=== PATIENT | female | born 1955 | race Caucasian/White ===

== ENCOUNTER 2019-04-14 12:42 | Outpatient (CLI) | payer MEDICARE, MEDICAID, SELFPAY ==
--- NOTE | 2019-04-14 12:49 | XR_ITS ---
WS: [id number] LATERAL CERVICAL SPINE: 3 view. Lateral radiographs are performed in upright neutral, flexion and extension to the patient's toleranc e. HISTORY: CERVICALGIA COMPARISON: 04/15/2015 Prior anterior cervical fusion with interbody spacers extends from C4 through C7. Incomplete fusion a cross the C4-5 and C5-6 disc spaces. C3 retrolisthesis by 1.4 mm. During extension 2 mm retrolisthesis of C3 and normal alignment during f lexion. XR/XR cervical spine fl/ex [id number] IMPRESSION: 1. Slight retrolisthesis of C3. Significant instability in this is not documen jimmy. 2. Prior anterior cervical fusion with interbody spacers from C4 to C7.
== END 2019-04-14 12:43 | disposition home or self-care (01) ==
PROVIDERS: Family Provider Family Medicine; Visit Provider Nurse Practitioner
DX: M54.2 Cervicalgia (principal); Z98.1 Arthrodesis status
CPT/HCPCS: 72040

== ENCOUNTER → 2019-04-22 13:09 | Outpatient (BNVA) | payer MEDICARE, MEDICAID, SELFPAY | PROVIDERS: Family Provider Family Medicine; Referring Provider Licensed Practical Nurse; Visit Provider Psychiatry & Neurology Neurology | DX: G56.22 Lesion of ulnar nerve, left upper limb (principal) | CPT/HCPCS: 95869 ==

== ENCOUNTER 2019-04-25 07:46 | Emergency (ER) | payer MEDICARE, MEDICAID, SELFPAY ==
[2019-04-25 07:48] VITALS: BP 161/66; PULSE 92; RESP 22; TEMP 36.8; O2SAT 97; BMI 41.1
[2019-04-25 08:04] VITALS: O2SAT 94
--- NOTE | 2019-04-25 08:06 | XRR_ITS ---
PROCEDURE INFORMATION: Exam: XR Chest, 1 View Exam date and time: 04/25/2019 8:19 AM Age: 63 years old Clinical indication: Shortness of breath; Additional info: Shortness of breath, chest tightness TECHNIQUE: Imaging protocol: XR of the chest Views: 1 view. COMPARISON: CR Chest 2 views* [id number] 06/18/2017 9:53 AM FINDINGS: Lungs: Hyperinflation and interstitial prominence. Pleural space: No significant pleural effusion. Heart/Mediastinum: Epicardial fat, without cardiomegaly. Bones/joints: Osteopenia. Cervical spine fusion. Degenerative change. When correlating with the previous study, no significant interval changes are present. XR/XR chest 1V portable [id number] IMPRESSION: Stable appearance of the chest, not significantly changed from 06/18/2017.
--- NOTE | 2019-04-25 08:09 | W.ED.SOB ---
HPI - SOB/Dyspnea General: Chief Complaint: Shortness of Breath/Dyspnea Stated Complaint: shortness of breath Time Seen by Provider: 04/25/19 08:06 Source: patient Mode of arrival: ambulatory Limitations: no limitations History of Present Illness: HPI Narrative: Patient comes in with 2 to 3-day history of shortness of breath with tightness around her chest. Patient also reports difficulty laying down and sleeping at night due to increased shortness of breath due to laying back. Patient reports symptoms got worse over the last 2 days. But has had some problems for the last 2 weeks. Patient denies any fever or chills. Patient looks chronically ill. Patient has short sentences without difficulty. Patient appears in no pain. Associated symptoms: Reports chest pain (tightness); Deny fever(s) Review of Systems General: Reports: 10 or more systems reviewed and unremarkable except in HPI and below Const: Denies: fever Card: Reports: chest pain (tightness) Resp: Reports: shortness of breath PFSH ED PFSH: Statuses (acute, chronic, etc) shown below reflect problem list status as previously entered and may not be historically accurate Social History Smoking and tobacco status: current every day smoker Physical Exam Const: COMMON NORMALS: no apparent distress and oriented x3 GENERAL APPEARANCE: cooperative HENMT: COMMON NORMALS: normocephalic, external ears normal, EAC's normal, TM's normal bilaterally and external nose normal HEAD & SCALP: normal to inspection and normocephalic FACE & SINUS: normal facial exam NOSE: external nose normal GENERAL EAR: hearing not grossly impaired EXTERNAL EAR: Yes external ears normal EXTERNAL AUDITORY CANAL: EAC's normal TYMPANIC MEMBRANE: TM's normal bilaterally MOUTH: oral and palatal mucosa normal THROAT: posterior oropharynx normal Eye: COMMON NORMALS: PERRL and EOMs intact bilaterally PUPIL: Yes PERRL Neck/C-Spine: COMMON NORMALS: full ROM and no lymphadenopathy Lymph: LYMPHATIC: no lymphedema noted Chest: COMMONS NORMALS: inspection of chest normal and palpation of chest normal Resp: COMMON NORMALS: normal respiratory effort AUSCULTATION: wheezes (mild) and diminished lung sounds Cardio: COMMON NORMALS: regular rate and regular rhythm RATE: regular rate RHYTHM: regular rhythm GI: COMMON NORMALS: normal to inspection, nondistended, normoactive bowel sounds and non-tender : COMMON NORMALS: Yes no CVA tenderness BLADDER/KIDNEY EXAM: Yes no CVA tenderness Back/Pelvis: COMMON NORMALS: no CVA tenderness and thoracic and lumbar spine normal to inspection Extremity: COMMON NORMALS: normal to inspection GENERAL: Yes edema (mild) OTHER: AKA left lower leg Neuro: COMMON NORMALS: oriented x3, moves all extremities and no focal motor deficits Psych: COMMON NORMALS: mental status grossly normal and cooperative Skin: COMMON NORMALS: no rashes or lesions noted GENERAL SKIN EXAM: no rashes or lesions noted Course ED course: 834, patient continues to have chest pressure, and mild shortness of breath since nebulizer treatment, wheezing improved in lung donato. wjw 0857, HEART Score for Major Cardiac Events from [place] on 04/25/2019 All calculations should be rechecked by clinician prior to use RESULT SUMMARY: 5 points Moderate Score (4-6 points) Risk of MACE of 12-16.6%. INPUTS: History ?> 1 = Moderately suspicious EKG ?> 1 = Non-specific repolarization disturbance Age ?> 1 = 45-64 Risk factors ?> 2 = ?3 risk factors or history of atherosclerotic disease Initial troponin ?> 0 = ?normal limit entered per wjw. REviewed with Dr. Mar. wjw 0943, no change in chest pressure with use of nitro paste, patient believes it is do to anxeity, reviewed labs and recommended admission for monitoring, patient refused. She will follow-up with her lead printer for further cardiac evaluation patient has nitro at home, takes a baby aspirin. Offered buspirone for patient to try for anxiety agreed to prescription. Vital Signs: Vital signs: Vital Signs Temperature 98.2 F 04/25/19 07:48 Pulse Rate 94 04/25/19 09:11 Respiratory Rate 22 H 04/25/19 08:25 Blood Pressure 131/65 04/25/19 09:11 Pulse Oximetry 95 04/25/19 09:11 MDM - SOB/Dyspnea MDM Narrative: Medical decision making narrative: Patient comes in today with complaints of some orthopnea and chest pressure. Patient states that she has been having increased difficulty over the last 2 weeks. On exam patient had some wheezing in the lung donato but with air movement throughout. Vital signs were stable with good oxygen saturation. Skin was warm and dry and patient appeared in no pain and appeared well. Differential diagnosis includes CHF, exacerbation of COPD, ACS, stable angina, anxiety. Laboratory values initially were unremarkable. No change was noted in the troponin over 2 hours. Review of EKG did note some changes from 2017. Chest x-ray was without any change. Patient was given a nebulizer treatment which cleared up her lung donato but did not change any of her discomfort. Patient was given a nitro to the chest wall which also did not change her discomfort. Patient felt that her pressure was due to anxiety and after further discussion patient agreed to trial of buspirone to see if it would help with her discomfort. Offered patient admission to the hospital but she refused. Discussed follow-up with lead printer and to set up for stress test patient wanted to talk to her own lead printer at [place], will put in a case management referral for assistance. Reviewed case with Dr. Gaitan who agreed to the plan and recommendations. Patient does understand to return to the ER for worsening signs and symptoms. Lab Data: Labs: Lab Results 04/25/19 04/25/19 04/25/19 Range/Units 06:30 06:30 06:30 WBC 10.3 H (4.0-10.0) 10^3/ uL RBC 4.95 (4.1-5.3) 10^6/u L Hgb 15.1 (11.5-15.3) g/dL Hct 46.1 (37.0-47.0) % MCV 93.1 (81-99) fL MCH 30.5 (28.0-34.0) pg MCHC 32.8 (30.0-36.0) g/dL RDW 13.3 (12.1-15.1) % Plt Count 210 (130-400) 10^3/c mm MPV 9.6 (7.4-10.4) fL Neut % (Auto) 58.7 % Lymph % (Auto) 30.8 % [place] % (Auto) 8.0 % Eos % (Auto) 1.5 % Baso % (Auto) 0.6 % Neut # (Auto) 6.0 (1.8-7.7) 10^3/u L Lymph # (Auto) 3.2 (0.8-4.8) 10^3/u L [place] # (Auto) 0.8 (0.2-0.9) 10^3/u L Eos # (Auto) 0.2 (0.0-0.8) 10^3/u L Baso # (Auto) 0.1 (0.0-0.1) 10^3/u L Nucleated RBC % (a uto) 0 % Nucleated RBCs # 0.0 /100WBC PT 13.00 (10.5-13.3) SECO NDS INR 0.95 (0.8-1.2) D-Dimer 0.36 (0-0.59) ug/mIFE U Specimen Type Sample Site ABG pH (7.35-7.45) ABG pCO2 (35-45) mmHg ABG pO2 (80.0-100.0) mmH g ABG HCO3 (22-26) mmol/L ABG Base Excess (-2.0-2.0) mmol/ L Gary Test Hematocrit (37-47) % Hgb O2 Saturation (95-100) % Carboxyhemoglobin (0.4-20.1) %THgb Methemoglobin (0.4-1.5) % Total Hemoglobin (12-16) g/dL O2 Delivery Device Material Handler ID Sodium 138 (136-145) mmol/L Potassium 4.3 (3.5-5.1) mmol/L Chloride 98 (98-107) mmol/L Carbon Dioxide 23 (22-29) mmol/L Anion Gap 21.3 H (5-19) BUN 15 (8-23) mg/dL Creatinine 0.6 (0.5-0.9) mg/dL GFR Calculation 101.3 (90-130) mL/min Glucose 135 H (74-106) mg/dL Lactic Acid (0.5-2.2) mmol/L Calcium 10.1 (8.5-10.5) mg/dL Total Bilirubin 0.3 (0.15-1.2) mg/dL AST 22 (0-32) U/L ALT 23 (0-33) U/L Alkaline Phosphata se 100 (35-105) IU/L Troponin T Baselin e (0-10) ng/mL Troponin T 120 Min [place] (0-10) ng/mL Delta Troponin T (0-10) ABS# NT-Pro-B Natriuret Pep 229 H (0-125) pg/mL Total Protein 7.3 (6.6-8.7) g/dL Albumin 4.9 (3.5-5.2) g/dL Globulin 2.4 (1.3-4.6) g/dL Lipase 29 (13-60) U/L 04/25/19 04/25/19 04/25/19 Range/Units 06:30 08:20 08:20 WBC (4.0-10.0) 10^3/ uL RBC (4.1-5.3) 10^6/u L Hgb (11.5-15.3) g/dL Hct (37.0-47.0) % MCV (81-99) fL MCH (28.0-34.0) pg MCHC (30.0-36.0) g/dL RDW (12.1-15.1) % Plt Count (130-400) 10^3/c mm MPV (7.4-10.4) fL Neut % (Auto) % Lymph % (Auto) % [place] % (Auto) % Eos % (Auto) % Baso % (Auto) % Neut # (Auto) (1.8-7.7) 10^3/u L Lymph # (Auto) (0.8-4.8) 10^3/u L [place] # (Auto) (0.2-0.9) 10^3/u L Eos # (Auto) (0.0-0.8) 10^3/u L Baso # (Auto) (0.0-0.1) 10^3/u L Nucleated RBC % (a uto) % Nucleated RBCs # /100WBC PT (10.5-13.3) SECO NDS INR (0.8-1.2) D-Dimer (0-0.59) ug/mIFE U Specimen Type Arterial Sample Site Radial, right ABG pH 7.42 (7.35-7.45) ABG pCO2 37.1 (35-45) mmHg ABG pO2 64.4 L (80.0-100.0) mmH g ABG HCO3 23.9 (22-26) mmol/L ABG Base Excess -0.3 (-2.0-2.0) mmol/ L Gary Test Pos Hematocrit 44.4 (37-47) % Hgb O2 Saturation 90.7 L (95-100) % Carboxyhemoglobin 3.8 (0.4-20.1) %THgb Methemoglobin 0.2 L (0.4-1.5) % Total Hemoglobin 14.5 (12-16) g/dL O2 Delivery Device Room air Material Handler ID monro Sodium (136-145) mmol/L Potassium (3.5-5.1) mmol/L Chloride (98-107) mmol/L Carbon Dioxide (22-29) mmol/L Anion Gap (5-19) BUN (8-23) mg/dL Creatinine (0.5-0.9) mg/dL GFR Calculation (90-130) mL/min Glucose (74-106) mg/dL Lactic Acid (0.5-2.2) mmol/L Calcium (8.5-10.5) mg/dL Total Bilirubin (0.15-1.2) mg/dL AST (0-32) U/L ALT (0-33) U/L Alkaline Phosphata se (35-105) IU/L Troponin T Baselin e 15 H (0-10) ng/mL Troponin T 120 Min [place] 13.68 H (0-10) ng/mL Delta Troponin T -1.32 L (0-10) ABS# NT-Pro-B Natriuret Pep (0-125) pg/mL Total Protein (6.6-8.7) g/dL Albumin (3.5-5.2) g/dL Globulin (1.3-4.6) g/dL Lipase (13-60) U/L 04/25/19 Range/Units 08:20 WBC (4.0-10.0) 10^3/ uL RBC (4.1-5.3) 10^6/u L Hgb (11.5-15.3) g/dL Hct (37.0-47.0) % MCV (81-99) fL MCH (28.0-34.0) pg MCHC (30.0-36.0) g/dL RDW (12.1-15.1) % Plt Count (130-400) 10^3/c mm MPV (7.4-10.4) fL Neut % (Auto) % Lymph % (Auto) % [place] % (Auto) % Eos % (Auto) % Baso % (Auto) % Neut # (Auto) (1.8-7.7) 10^3/u L Lymph # (Auto) (0.8-4.8) 10^3/u L [place] # (Auto) (0.2-0.9) 10^3/u L Eos # (Auto) (0.0-0.8) 10^3/u L Baso # (Auto) (0.0-0.1) 10^3/u L Nucleated RBC % (a uto) % Nucleated RBCs # /100WBC PT (10.5-13.3) SECO NDS INR (0.8-1.2) D-Dimer (0-0.59) ug/mIFE U Specimen Type Sample Site ABG pH (7.35-7.45) ABG pCO2 (35-45) mmHg ABG pO2 (80.0-100.0) mmH g ABG HCO3 (22-26) mmol/L ABG Base Excess (-2.0-2.0) mmol/ L Gary Test Hematocrit (37-47) % Hgb O2 Saturation (95-100) % Carboxyhemoglobin (0.4-20.1) %THgb Methemoglobin (0.4-1.5) % Total Hemoglobin (12-16) g/dL O2 Delivery Device Material Handler ID Sodium (136-145) mmol/L Potassium (3.5-5.1) mmol/L Chloride (98-107) mmol/L Carbon Dioxide (22-29) mmol/L Anion Gap (5-19) BUN (8-23) mg/dL Creatinine (0.5-0.9) mg/dL GFR Calculation (90-130) mL/min Glucose (74-106) mg/dL Lactic Acid 2.1 (0.5-2.2) mmol/L Calcium (8.5-10.5) mg/dL Total Bilirubin (0.15-1.2) mg/dL AST (0-32) U/L ALT (0-33) U/L Alkaline Phosphata se (35-105) IU/L Troponin T Baselin e (0-10) ng/mL Troponin T 120 Min [place] (0-10) ng/mL Delta Troponin T (0-10) ABS# NT-Pro-B Natriuret Pep (0-125) pg/mL Total Protein (6.6-8.7) g/dL Albumin (3.5-5.2) g/dL Globulin (1.3-4.6) g/dL Lipase (13-60) U/L EKG Data^: EKG 1: Attestation: I personally reviewed and interpreted this EKG as follows: (0836, SR, rate 86 bpm regular, no ectopy, non-specific t-wave abnormality, changes since 09/20/16, wjw) Discharge Plan Discharge Patient Disposition: Home, Self-Care Clinical Impression: Atypical chest pain, Anxiety Condition: Stable Prescriptions: New buspirone 5 mg tablet 5 mg PO BID Qty: 30 RF: 0 Discharge Orders: Discharge Order (Routine); Ordered 04/25/19 Ordered By: Ramiro Glover Referrals: NOT ON FILE,DOCTOR [Primary Care Provider] - Jacquelyn Null DO [Family Provider] - Discharge Diet: Usual diet Discharge Activity: Resume usual activity Patient Instructions: Chest Pain (ED) Activity Restrictions/Additional Instructions: Home and rest Buspirone works best for anxiety if taken all the time, but may be use for as needed Follow-up with primary care for refills on medication Continue routine medications as directed Follow-up with lead printer office for re-evaluation and further testing with stress test. Coding Level of Care Code ED Staking Press Operator for Deo Viveros Exam Problem Focused
[2019-04-25 08:15] LABS: Basophils # 0.1 10^3/uL (0.0-0.1); Basophils % 0.6 %; Eosinophils # 0.2 10^3/uL (0.0-0.8); Eosinophils % 1.5 %; Hematocrit 46.1 % (37.0-47.0); Hemoglobin 15.1 g/dL (11.5-15.3); Lymphocytes # 3.2 10^3/uL (0.8-4.8); Lymphocytes % 30.8 %; Mean Corpuscular HGB Conc 32.8 g/dL (30.0-36.0); Mean Corpuscular Hemoglobin 30.5 pg (28.0-34.0); Mean Corpuscular Volume 93.1 fL (81-99); Mean Platelet Volume 9.6 fL (7.4-10.4); Monocytes # 0.8 10^3/uL (0.2-0.9); Neutrophils % 58.7 %; Nucleated Red Blood Cells % 0 %; Platelet Count 210 10^3/cmm (130-400); Red Blood Count 4.95 10^6/uL (4.1-5.3); Red Cell Distribution Width 13.3 % (12.1-15.1); White Blood Count 10.3 10^3/uL (4.0-10.0)
[2019-04-25] MEDS: ipratropium-albuterol 3 mL Neb INHALATION (08:19)
[2019-04-25 08:25] VITALS: PULSE 87; RESP 22; O2SAT 95
[2019-04-25 08:27] VITALS: PULSE 92
[2019-04-25 08:27] LABS: INR 0.95 (0.8-1.2)
[2019-04-25 08:30] LABS: D Dimer 0.36 ug/mIFEU (0-0.59)
[2019-04-25 08:31] LABS: ABG PCO2 37.1 mmHg (35-45); ABG PH Result 7.42 (7.35-7.45); Arterial Blood Gas Hematocrit 44.4 % (37-47); Base Excess ABG -0.3 mmol/L (-2.0-2.0); Blood Gas Allen Test Pos; Blood Gas Sample Site Radial, right; Blood Gas Sample Type Arterial; Carboxyhemoglobin 3.8 %THgb (0.4-20.1); HCO3 ABG 23.9 mmol/L (22-26); HGB O2 Sat 90.7 % (95-100); Methemoglobin 0.2 % (0.4-1.5); Oxygen Device ROOM AIR; PO2 ABG 64.4 mmHg (80.0-100.0); Total Hemoglobin 14.5 g/dL (12-16)
[2019-04-25 08:37] LABS: Troponin(5th) Baseline 15 ng/mL (0-10)
[2019-04-25 08:41] LABS: Lactic Sepsis W/Reflex 2.1 mmol/L (0.5-2.2)
[2019-04-25 08:42] LABS: Troponin 5 2HR 13.68 ng/mL (0-10)
[2019-04-25 08:45] LABS: Alanine Aminotransferase 23 U/L (0-33); Albumin Level 4.9 g/dL (3.5-5.2); Alkaline Phosphatase 100 IU/L (35-105); Anion Gap 21.3 (5-19); Aspartate Amino Transferase 22 U/L (0-32); Blood Urea Nitrogen 15 mg/dL (8-23); Calcium 10.1 mg/dL (8.5-10.5); Carbon Dioxide 23 mmol/L (22-29); Chloride 98 mmol/L (98-107); Globulin 2.4 g/dL (1.3-4.6); Glomerular Filtration Rate 101.3 mL/min (90-130); Glucose 135 mg/dL (74-106); Lipase 29 U/L (13-60); NT Pro B Type Natriuretic Pept 229 pg/mL (0-125); Potassium 4.3 mmol/L (3.5-5.1); Sodium 138 mmol/L (136-145); Total Bilirubin 0.3 mg/dL (0.15-1.2); Total Protein 7.3 g/dL (6.6-8.7)
[2019-04-25 08:55] LABS: Troponin 5 2HR Delta -1.32 ABS# (0-10)
[2019-04-25] MEDS: nitroglycerin 1 gm/inch oint Pkt 1 INCH TOPICAL (09:08)
[2019-04-25 09:11] VITALS: BP 131/65; PULSE 94; O2SAT 95
--- NOTE | 2019-04-25 10:08 | ECG_ITS ---
Measurements Intervals Eva Rate: 91 P: 61 MT: 171 QRS: -10 QRSD: 87 T: 74 QT: 367 QTc: 453 SINUS RHYTHM NONSPECIFIC T-WAVE ABNORMALITY Compared to ECG 09/20/2016 05:53:53 T-wave abnormality now present Sinus tachycardia no longer present Myocardial infarct finding no longer present Electronically Signed On 04-25-2019 15:37:24 FIELD AGRONOMIST by Murtaza Matthews M.D. [email or web address]
[2019-04-25 10:11] LABS: Reflex Lactate Order REFLEX LACTIC ORDERD
--- NOTE | 2019-04-25 10:23 | PC.PHAR ---
pt discharged before i could verify meds but this is what has been filled at the pharmacy recently
[2019-04-25 10:28] VITALS: BP 140/78; PULSE 95; O2SAT 96
--- NOTE | 2019-04-25 11:31 | DCPLANNER ---
design manager was asked to call for transportation for patient. design manager called medicaid transportation and arranged for transportation. Trip number is [phone]. design manager was also asked about scheduling an out patient stress test for patient. design manager spoke with patient, she stated that she has spoken with her primary care, that she will see next week. Patient stated that her primary care will arrange for the stress test and any other testing that patient may need. No case management services are needed at this time.
--- NOTE | 2019-04-25 14:08 | ECG_ITS ---
Measurements Intervals [place] Rate: 86 P: 64 TX: 180 QRS: -10 QRSD: 91 T: 66 QT: 368 QTc: 442 SINUS RHYTHM LOW QRS VOLTAGE IN PRECORDIAL LEADS [QRS DEFLECTION < 1.0 mV IN CHEST LEADS] NONSPECIFIC T-WAVE ABNORMALITY Compared to ECG 09/20/2016 05:53:53 Low QRS voltage now present T-wave abnormality now present Sinus tachycardia no longer present Myocardial infarct finding no longer present Electronically Signed On 04-25-2019 15:37:20 REGULATORY LAW SPECIALIST by Murtaza Matthews M.D. [email or web address]
== END 2019-04-25 10:42 | disposition home or self-care (01) ==
PROVIDERS: Emergency Provider Nurse Practitioner Family; Family Provider Family Medicine
DX: R07.89 Other chest pain (principal); F41.9 Anxiety disorder, unspecified; F17.210 Nicotine dependence, cigarettes, uncomplicated
CPT/HCPCS: 36415; 36600; 71045; 80053; 82805; 83605; 83690; 83880; 84484; 85025; 85378; 85610; 87040; 87077; 87184; 87205; 93005; 94640; 99282

== ENCOUNTER 2019-05-14 09:37 | Outpatient (CLI) | payer MEDICARE, MEDICAID, SELFPAY ==
--- NOTE | 2019-05-14 09:48 | USCV_ITS ---
Nabila Maier Age: 63 Gender: F : 1955 Exam Date: 05/14/2019 09:45 Ordering Phys: Luis Ayala Technologist: Axel Gunn Exam Location: [facility] – [place] Indication: ARTERIAL INSUFFICIENCY RIGHT LEFT Brachial 142.00 mmHg Brachial 141.00 mmHg Pressure (mmHg) Waveform Pressure (mmHg) Waveform 96.00 Above Knee 84.00 Below Knee 99.00 SENIOR LOAN OFFICER 89.00 DPA 0.70 Ankle/Brachial Index FINDINGS unable to detect pulse in right first digit Diminished resting JUAN of 0.7 on the right side Diminished segmental pressures CONCLUSIONS Abnormal resting JUAN of the right side, suggestive of hemodynamically significant iliofemoral disease Features of possible occlusion of the first digital artery on the right side Dr Murtaza Matthews MD FAC (Electronically Signed) Final Date: 15 May 2019 19:44 S
--- NOTE | 2019-05-14 10:29 | USCV_ITS ---
Nabila Maier Age: 63 Gender: F : 1955 Exam Date: 05/14/2019 10:38 Ordering Phys: Luis Ayala Technologist: Osiris Arevalo Exam Location: [facility] [place] Indication: STENOSIS Risk Factors: Previous Vascular Surgery: Right Brachial BP: / Left Brachial BP: / Right Left Velocity (cm/s) Spectral Plaque Velocity (cm/s) Spectral Plaque Syst/Diast Broadening Syst/Diast Broadening 86.00/ 24.30 Prox CCA 68.20 / 16.80 89.30/ 25.40 Mid CCA 67.10 / 22.40 87.10/ 27.60 Distal CCA 36.50 / 13.50 91.70/ 24.90 Prox ICA 50.00 / 16.70 54.20/ 13.80 Mid ICA 61.10 / 22.20 68.00/ 24.60 Distal ICA 64.30 / 21.40 156.90 ECA 77.00 1.03 ICA/CCA 0.96 Antegrade Vertebral Antegrade 24.50/ 6.30 cm/s 34.10/ 12.70 cm/s Tri Subclavian Tri 112.4 178.0 0 0 FINDINGS Comparison:. 08/17/16 No significant elevation of systolic or diastolic velocities. Diffuse bilateral scattered calcified plaque and intimal thickening throughout the common carotid arteries and extending through the bifurcation. Greatese plaque at the bifurcations. Antegrade vertbral arteries. CONCLUSIONS No interval change in stenosis since prior exam. Bilateral ICA stenosis less than 50%. Dr. Mya May DO (Electronically Signed) Final Date: 14 May 2019 11:25 S
== END 2019-05-14 09:38 | disposition home or self-care (01) ==
LOC: US 09:43
DX: I77.1 Stricture of artery (principal); I65.23 Occlusion and stenosis of bilateral carotid arteries
CPT/HCPCS: 93880; 93922

== ENCOUNTER 2019-06-11 11:43 | Outpatient (CLI) | payer MEDICARE, MEDICAID, SELFPAY ==
--- NOTE | 2019-06-11 12:04 | USCV_ITS ---
Darrion Nabila Age: 63 Gender: F : 1955 Exam Date: 06/11/2019 12:34 Ordering Phys: Ramiro Lundberg MD (Andy) ([email or web address]) Technologist: Cruz Horan Exam Location: [facility] – [place] Indication: RT LEG PAIN PAD Risk Factors: Previous Vascular Surgery: RIGHT LEFT BP: 119.0 / 66.00 BP: 132.0/ 76.00 0 0 Waveform Velocity (cm/s) Velocity (cm/s) Waveform Triphasic 88.7 Iliac Prox Triphasic 51.1 Iliac Mid Triphasic 94.5 Iliac Distal Triphasic 82.4 GLAZE SUPERVISOR Biphasic 112.8 SFA Prox Biphasic 51.1 SFA Mid Biphasic 71.3 SFA Dist Biphasic 45.3 POP Biphasic 61.7 ELEVATOR CONDUCTOR Biphasic 43.0 DPA 0.7 JUAN FINDINGS Resting JUAN of 0.7 on the right side. Moderate diffuse plaques in the iliac and femoral artery CONCLUSIONS Abnormal resting JUAN on the right side, suggestive of moderate peripheral artery disease. Moderate diffuse plaques in the iliac and femoral arteries. Dr Murtaza Matthews MD FAC (Electronically Signed) Final Date: 12 June 2019 06:34 S
== END 2019-06-11 11:44 | disposition home or self-care (01) ==
LOC: US 11:45
PROVIDERS: Visit Provider Thoracic Surgery (Cardiothoracic Vascular Surgery)
DX: I70.291 Other atherosclerosis of native arteries of extremities, right leg (principal); M79.604 Pain in right leg
CPT/HCPCS: 93926

== ENCOUNTER 2019-06-19 13:34 | Outpatient (CLI) | payer MEDICARE, MEDICAID, SELFPAY ==
--- NOTE | 2019-06-19 14:30 | CT_ITS ---
WS: [id number] CT CHEST TECHNIQUE: Noncontrast CT of the chest with coronal and sagittal reformatted images. CLINICAL INFORMATION: hemoptysis COMPARISON: 2018 DLP: 949.[address] scans at [facility] use at least one of these dose optimization techniques: automat ed exposure control; mA and/or kV adjustment per patient size (includes targeted exams where dose is matched to clinical indication); or iterative reconstruction. FINDINGS: Moderate chronic emphysematous changes. No acute pulmonary infiltrates. No focal pneumonia. No consol idation or pleural fluid. Again seen are right upper lobe tree-in-bud infiltrates which can be seen w ith infectious or inflammatory bronchiolitis. This is unchanged from previous. 5 mm hazy ground glass noncalcified pulmonary nodule in the super segment right lower lobe is unchanged. A few hazy groundg lass nodules in the right upper lobe laterally difficult to visualize but appear unchanged. Stable pleural plaques left lower lobe with adjacent fibrosis. Aortic calcification. Coronary calcification. No mediastinal or hilar lymphadenopathy. Adrenal glands are normal. CT/CT chest wo con [id number] IMPRESSION: 1. A few hazy groundglass nodules in the super segment right lower lobe and ri ght upper lobe laterally measuring 4 to 5 mm are unchanged. Recommend 12 month follow-up. 2. No new pulmonary nodules. 3. No mediastinal or hilar lymphadenopathy. 4. Small esophageal hiatal hernia. 5. Stable tree-in-bud opacities in the right upper lobe. 6. Stable pleural plaques in the left lower lobe.
--- NOTE | 2019-06-19 15:00 | USCV_ITS ---
Darrion Nabila Age: 63 Gender: F : 1955 Exam Date: 06/19/2019 13:49 Ordering Phys: Eveline Olivo MD Technologist: Gregoria Armenta Exam Location: [facility] – [place] Indication: SOB BP: 106 / 63 HR: 86 Rhythm: Sinus Technical Quality: Technically difficult study MEASUREMENTS (Male / Female) Normal Values 2D ECHO LV Diastolic Diameter PLAX 4.1 cm 4.2 - 5.9 / 3.9 - 5.3 cm LV Systolic Diameter PLAX 3.0 cm LV Chamber Size 4.1 cm IVS Diastolic Thickness 1.4 cm 0.6 - 1.0 / 0.6 - 0.9 cm IVS Systolic Thickness 1.9 cm LVPW Diastolic Thickness 1.4 cm 0.6 - 1.0 / 0.6 - 0.9 cm LVPW Systolic Thickness 1.4 cm RV Chamber Size 2.2 cm LVOT Diameter 2.1 cm LV Ejection Fraction 2D Teich 51.1 % LV Ejection Fraction MOD 2C 63.3 % LV Ejection Fraction 2C AL 64.6 % LA Diameter 5.1 cm LA Width 3.1 cm LA Height 5.2 cm RA Width 3.9 cm RA Height 4.3 cm Aorta at Sinotubular Diameter 2.6 cm M-MODE LV Diastolic Diameter MM 3.7 cm 4.2 - 5.9 / 3.9 - 5.3 cm LV Systolic Diameter MM 2.7 cm LV Ejection Fraction MM Teich 53.9 % IVS Diastolic Thickness MM 1.4 cm 0.6 - 1.0 / 0.6 - 0.9 cm IVS Systolic Thickness MM 1.6 cm LVPW Diastolic Thickness MM 1.6 cm 0.6 - 1.0 / 0.6 - 0.9 cm LVPW Systolic Thickness MM 1.9 cm RV Diastolic Diameter MM 1.2 cm Aortic Annulus Diameter 2.8 cm LA Ao Ratio MM 1.8 MV E Point Septal Separation 1.0 cm DOPPLER AV Peak Velocity 151.0 cm/s LVOT Peak Velocity 89.0 cm/s AV Area Cont Eq vti 2.4 cm squared AV Area Cont Eq pk 2.0 cm squared MV Area PHT 5.0 cm squared Mitral E to A Ratio 0.8 MV E' Velocity 8.0 cm/s Mitral E to MV E' Ratio 16.3 Mitral E to LV E' Lateral Ratio 16.3 Mitral E to LV E' Septal Ratio 16.5 TR Peak Velocity 222.8 cm/s TR Peak Gradient 19.9 mmHg TR Mean Velocity 143.0 cm/s TR Mean Gradient 10.2 mmHg TR Velocity Time Integral 59.6 cm TV Peak E Velocity 36.0 cm/s PV Peak Velocity 68.0 cm/s RV Acceleration Time 0.1 s RV Ejection Time 0.4 s RV AcT/ET 0.4 FINDINGS Left Ventricle Left ventricular ejection fraction is estimated at 50-55 %. normal left ventricular cavity size. Left ventricular cavity not well visualized. Endocardium is poorly visualized Right Ventricle Normal right ventricular size and systolic function. Right Atrium Normal right atrial size. Left Atrium The left atrium is normal in size. Mitral Valve Structurally normal mitral valve without significant stenosis or prolapse. There is 2 + mitral regurgitation. Mitral regurgitation could be underestimated due to poor windows Aortic Valve Structurally normal aortic valve without significant sclerosis or stenosis. There is no aortic regurgitation. Tricuspid Valve Structurally normal tricuspid valve without significant stenosis or regurgitation. Pulmonary artery systolic pressure is elevated Pulmonic Valve . There is no pulmonic regurgitation. Poorly visualized Pericardium Normal pericardium without effusion. Aorta Normal ascending aorta dimension. CONCLUSIONS Normal LV function EF 50-55 % No significant valvular stenosis 2+ mitral regurgitation Normal PA pressures No pericardial effusion Smiley Li MD (Electronically Signed) Final Date: 19 June 2019 15:20 S
== END 2019-06-19 13:35 | disposition home or self-care (01) ==
LOC: CT 13:35
PROVIDERS: Visit Provider Internal Medicine Critical Care Medicine
DX: J44.9 Chronic obstructive pulmonary disease, unspecified (principal); K44.9 Diaphragmatic hernia without obstruction or gangrene; J92.9 Pleural plaque without asbestos; R04.2 Hemoptysis
CPT/HCPCS: 71250; 93306

== ENCOUNTER 2019-11-20 09:51 | Outpatient (CLI) | payer MEDICARE, MEDICAID, SELFPAY ==
--- NOTE | 2019-11-20 10:15 | USCV_ITS ---
Darrion Nabila Age: 64 Gender: F : 1955 Exam Date: 11/20/2019 10:27 Ordering Phys: Ramiro Lundberg MD (Andy) Technologist: Monique Rivera Exam Location[place] [facility] [place] Indication: PVD Risk Factors: Smoker Previous Vascular Surgery: RIGHT LEFT BP: 120.0 / 67.00 BP: 122.0/ 66.00 0 0 Waveform Velocity (cm/s) Velocity (cm/s) Waveform Monophasic 224.6 Iliac Prox Monophasic 193.8 Iliac Mid Monophasic Iliac Distal 145.7 Monophasic 106.5 INTERN Monophasic 111.7 SFA Prox Monophasic 90.4 SFA Mid Monophasic 55.2 SFA Dist Monophasic 64.5 POP Monophasic 32.6 FOIL OPERATOR Monophasic 33.4 DPA 0.3 JUAN FINDINGS Monophasic and continuous waveforms in the right dorsalis pedis artery Markedly diminished resting JUAN on the right side CONCLUSIONS 1. Abnormal resting JUAN on the right side, consistent with severe peripheral artery disease, possibly multisegmental. 2. Features of collateral filling of the dorsalis pedis artery . Dr Murtaza Matthews MD FACC (Electronically Signed) Final Date: 21 November 2019 00:28 S
--- NOTE | 2019-11-20 11:00 | USCV_ITS ---
Nabila Maier Age: 64 Gender: F : 1955 Exam Date: 11/20/2019 10:00 Ordering Phys: Ramiro Lundberg MD (Andy) Technologist: Gregoria Armenta [place] [facility] [place]ication: RECHECK CCA STENOSIS Risk Factors: Previous Vascular Surgery: Right Brachial BP: / Left Brachial BP: / Right Left Velocity (cm/s) Spectral Plaque Velocity (cm/s) Spectral Plaque Syst/Diast Broadening Syst/Diast Broadening 89.30/ 26.50 Prox CCA 79.90 / 23.40 105.80/28.70 Mid CCA 59.60 / 20.40 87.10/ 37.50 Distal CCA 75.40 / 20.40 128.00/32.70 Prox ICA 82.20 / 29.40 128.00/37.00 Mid ICA 85.70 / 20.60 55.80/ 18.60 Distal ICA 83.30 / 24.20 162.90 ECA 45.60 1.21 ICA/CCA 1.44 Vertebral 56.20/ 14.00 cm/s 39.50/ 12.80 cm/s Subclavian 67.90 234.9 0 FINDINGS Comparison:. 05/14/19 Moderate bilateral, calcified plaque with no elevation of velocity. Minimal progression since the prior study. Bilateral antegrade vertebral arteries. CONCLUSIONS Bilateral ICA stenosis less than 50%. Calcified plaque at the bifurcations with minimal progression. Dr. Mya May DO (Electronically Signed) Final Date: 21 November 2019 16:16 S
== END 2019-11-20 09:52 | disposition home or self-care (01) ==
LOC: RAD 09:55
PROVIDERS: Visit Provider Thoracic Surgery (Cardiothoracic Vascular Surgery)
DX: I65.23 Occlusion and stenosis of bilateral carotid arteries (principal); I73.9 Peripheral vascular disease, unspecified
CPT/HCPCS: 93880; 93926

== ENCOUNTER → 2019-12-17 11:55 | Outpatient (BNVA) | payer MEDICARE, MEDICAID, SELFPAY | PROVIDERS: PCP Nurse Practitioner Family; Visit Provider Internal Medicine Critical Care Medicine | DX: I34.0 Nonrheumatic mitral (valve) insufficiency (principal); G47.10 Hypersomnia, unspecified | CPT/HCPCS: 80048; 83880 ==

== ENCOUNTER 2019-12-21 10:14 | Emergency (ER) | payer MEDICARE, MEDICAID, SELFPAY ==
[2019-12-21] VITALS (16 sets, daily range): BP systolic 108–155; BP diastolic 60–87; PULSE 115–124; RESP 15–24; TEMP 37.7; O2SAT 84–100; BMI 44.8
--- NOTE | 2019-12-21 10:30 | ECG_ITS ---
[facility] Test Date: 2019-12-21 Pat Name: Nabila Maier Department: Room: Gender: Female Med Spa Manager: : 1955 Requested By: Zakiya Bob Order Number: [id number] Kaz MD: Joshua Alvarado M.D. Measurements Intervals [place] Rate: 123 P: 69 MT: 175 QRS: -29 QRSD: 109 T: 83 QT: 332 QTc: 475 Interpretive Statements SINUS TACHYCARDIA Compared to ECG 04/25/2019 10:02:29 Sinus rhythm no longer present T-wave abnormality no longer present Electronically Signed On 12-22-2019 19:15:33 CDT by Joshua Alvarado M.D. [email or web address]
--- NOTE | 2019-12-21 10:30 | XRR_ITS ---
PROCEDURE INFORMATION: Exam: XR Chest, 1 View Exam date and time: 12/21/2019 10:33 AM Age: 64 years old Clinical indication: Dyspnea; Additional info: Dyspnea, cp, covid R/O TECHNIQUE: Imaging protocol: XR of the chest Views: 1 view. COMPARISON: CT chest [facility] [id number] 06/19/2019 2:27 PM FINDINGS: Lungs: There is now a mild interstitial pattern consistent with infectious pneumonitis, allergic pneumonitis or pulmonary interstitial edema. Pleural space: Unremarkable. No pleural effusion. No pneumothorax. Heart/Mediastinum: Unremarkable. No cardiomegaly. Bones/joints: Moderate thoracic spondylosis. Other findings: Stable post operative changes over the cervical spine. XR/XR chest 1V portable [id number] IMPRESSION: There is now a mild interstitial pattern consistent with infectious pneumonitis, allergic pneumonitis or pulmonary interstitial edema.
[2019-12-21] MEDS: dexamethasone 10 mg/mL INJ IVP (10:46)
[2019-12-21] MEDS: ondansetron 2 mg/ML SDV 2 mL 4 MG IVP (10:46)
[2019-12-21] MEDS: morphine 4 mg/mL SDV 1 mL IVP (10:46)
[2019-12-21] MEDS: sodium chloride 0.9% 500 ML 999 ML IV (10:48)
[2019-12-21 10:53] LABS: Basophils # 0.1 10^3/uL (0.0-0.1); Basophils % 0.4 %; Eosinophils # 0.1 10^3/uL (0.0-0.8); Eosinophils % 0.4 %; Hematocrit 43.1 % (37.0-47.0); Hemoglobin 13.7 g/dL (11.5-15.3); Lymphocytes # 1.9 10^3/uL (0.8-4.8); Lymphocytes % 10.1 %; Mean Corpuscular HGB Conc 31.8 g/dL (30.0-36.0); Mean Corpuscular Hemoglobin 29.7 pg (28.0-34.0); Mean Corpuscular Volume 93.5 fL (81-99); Mean Platelet Volume 9.7 fL (7.4-10.4); Monocytes # 1.3 10^3/uL (0.2-0.9); Monocytes % 7.3 %; Neutrophils # 14.88 10^3/uL (1.8-7.7); Neutrophils % 81.5 %; Nucleated Red Blood Cells % 0 %; Platelet Count 198 10^3/cmm (130-400); Red Blood Count 4.61 10^6/uL (4.1-5.3); Red Cell Distribution Width 14.4 % (12.1-15.1); White Blood Count 18.3 10^3/uL (4.0-10.0)
[2019-12-21 11:06] LABS: INR 0.92 (0.8-1.2)
[2019-12-21] MEDS: albuterol 8 gm MDI 4 PUFF INHALATION (11:06)
[2019-12-21 11:09] LABS: D Dimer 0.52 ug/mIFEU (0-0.59)
[2019-12-21 11:14] LABS: Troponin(5th) Baseline 14 ng/L (0-10)
[2019-12-21 11:24] LABS: NT Pro B Type Natriuretic Pept 467 pg/mL (0-125); Procalcitonin 0.03 ng/mL (0-0.5)
[2019-12-21 11:35] LABS: Alanine Aminotransferase 25 U/L (0-33); Albumin Level 4.6 g/dL (3.5-5.2); Alkaline Phosphatase 87 IU/L (35-105); Anion Gap 20.8 (5-19); Aspartate Amino Transferase 23 U/L (0-32); Blood Urea Nitrogen 12 mg/dL (8-23); C Reactive Protein 47.1 mg/L (0.0-4.9); Carbon Dioxide 22 mmol/L (22-29); Chloride 99 mmol/L (98-107); Globulin 2.5 g/dL (1.3-4.6); Glucose 151 mg/dL (65-115); Lipase 13 U/L (13-60); Osmolality Calculated 287 mOsm/kg (285-295); Potassium 4.8 mmol/L (3.5-5.1); Sodium 137 mmol/L (136-145); Total Bilirubin 0.6 mg/dL (0.15-1.2); Total Protein 7.1 g/dL (6.6-8.7)
[2019-12-21 11:46] LABS: Lactic Sepsis W/Reflex 1.1 mmol/L (0.5-2.2)
[2019-12-21 11:47] LABS: SARS Covid-2 Antigen Negative (Negative)
--- NOTE | 2019-12-21 11:52 | PC.NURSE ---
RT AT BEDSIDE WITH PATIENT. PT GIVEN ICE CHIPS PER REQUEST, MD RUELAS
[2019-12-21] MEDS: magnesium sulfate premix 2 GM/50 ML PIGGYBACK IV (12:11)
--- NOTE | 2019-12-21 12:32 | PC.NURSE ---
PATIENT MOVED FROM ER9 TO ER13 FOLLOWING NEGATIVE COVID TESTING.
[2019-12-21 12:41] LABS: Troponin 5 2HR 14.81 ng/L (0-10); Troponin 5 2HR Delta 0.81 ABS# (0-10)
--- NOTE | 2019-12-21 13:04 | PC.NURSE ---
PATIENT PLACED ON ROOM AIR PER ED PHYSICIAN
--- NOTE | 2019-12-21 13:06 | PC.NURSE ---
ED PHYSICIAN NOTIFIED OF 88% SPO2 ON ROOM AIR AT REST. PATIENT PLACED BACK ON 2L NC
--- NOTE | 2019-12-21 13:14 | W.ED.CHESTPA ---
HPI - Chest Pain General: Chief Complaint: Chest Pain Stated Complaint: chest pain with SOB Time Seen by Provider: 12/21/19 10:19 History of Present Illness: HPI narrative: This patient is a 64-year-old female who presents to the emergency room today with chest pain and shortness of breath. She said both of them started last night and are quite severe. She has a history of COPD and has been telling her doctors for some time that she needs oxygen at home but she has never gotten it. She uses inhalers and nebulizers at home. She said they have not really been helping with this episode. She is never been quite this bad before. She denies fevers or chills. She denies history of stents but says that she has had 3 heart attacks in the past. 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 She is certain that she does not have COVID. She said she does not go anywhere and does not let anyone around her in her house. She has not had any other recent medication changes or other illnesses. She denies nausea vomiting or diarrhea. She has started seeing the home health outreach coordinator here and recently learned that she has a leaky heart valve. She also continues to smoke. MD complaint: chest pain, chest heaviness and chest discomfort Pertinent past history: coronary artery disease and prior AK Onset (ago): hour(s) (12) Timing of current episode: constant Prior episodes: Yes Onset: during rest Pain location: substernal Pain radiation: left arm Severity: moderate Quality: tightness and aching Relieving factors: nothing and nitroglycerin (Nitro given in the ambulance did not help) Exacerbating factors: nothing Associated symptoms: Reports dyspnea; Deny fever(s), leg edema or nausea Review of Systems General: Reports: 10 or more systems reviewed and unremarkable except in HPI and below Const: Denies: fever(s) Eyes: Denies: change in vision ENMT: Denies: odynophagia Card: Denies: swelling of feet/ankles Resp: Reports: dyspnea GI: Denies: nausea : Denies: flank pain or difficulty voiding Musc: Denies: neck pain or back pain Skin/Breast: Denies: rash Neuro: Denies: headache(s), numbness in extremities or weakness in extremities Rafy/Lymph: Denies: easy bruising or easy bleeding [facility] ED PFSH: Medical History (Updated 12/21/19 @ 15:20 by Zakiya Hernandez MD) Bilateral carotid artery stenosis Cough with hemoptysis Peripheral arterial occlusive disease Surgical History Amputation of left lower extremity H/O tubal ligation H/O vascular surgery History of carpal tunnel surgery of right wrist History of lumbar laminectomy Bilateral L4-L5 laminotomy/foraminotomy; 11/15/2015; [facility] [place] Status post cervical spinal fusion C4-C7 ACDFF; 02/18/2015; [facility] [place] Family History Mother CAD (coronary artery disease) Hypertension Father Lung disease Social History (Updated 12/21/19 @ 10:35 by Luis Drummond RN) Smoking and tobacco status: current every day smoker cigarettes Packs smoked per day: 0.5 Years cigarettes smoked: 45 Smoking risk assessment/counseling performed?: Yes Alcohol intake: never Lives independently: Yes Household members: children Marital status: / Current occupational status: disabled History of recent travel: No Current gender identity: Female Physical Exam Const: COMMON NORMALS: patient oriented x3, no limitations and alert GENERAL APPEARANCE: cooperative HENMT: HEAD & SCALP: normal to inspection FACE & SINUS: normal facial exam Eye: GENERAL EYE: appearance normal, both eyes and all related structures Neck/C-Spine: COMMON NORMALS: supple, no meningeal signs and no JVD Chest: COMMONS NORMALS: normal inspection of the chest Resp: EFFORT & INSPECTION: Yes tachypneic, Yes respiratory distress, Yes labored, Yes retractions and Yes uses accessory muscles Cardio: COMMON NORMALS: no JVD, regular rhythm and No murmurs present (Cardio) RATE: tachycardic RHYTHM: regular rhythm GI: COMMON NORMALS: Normal to inspection, nondistended, normoactive bowel sounds present, Soft to palpation and non-tender INSPECTION: Yes normal to inspection AUSCULTATION: Yes normoactive bowel sounds PALPATION: Yes Soft to palpation Back/Pelvis: COMMON NORMALS: thoracic and lumbar spine normal to inspection Extremity: COMMON NORMALS: normal to inspection Neuro: COMMON NORMALS: patient oriented x3, moves all extremities (Status post AKA on the left), no focal motor deficits and no sensory deficits noted SENSORIUM/ORIENTATION: Yes alert MENINGEAL SIGNS: Yes no meningeal signs Psych: COMMON NORMALS: mental status grossly normal, cooperative and normal affect Skin: COMMON NORMALS: no rashes or lesions noted and turgor normal GENERAL SKIN EXAM: no rashes or lesions noted and turgor normal Course ED course: In spite of the patient being certain she did not have COVID she was initially put on covered precautions and a swab was done. This was negative in the ED. This was the rapid antigen test. Chest x-ray showed some possible fluid versus some pneumonitis. She had significant improvement in her wheezing with 4 puffs of an albuterol MDI. She was also given magnesium and then after she was taken off COVID precautions also given a DuoNeb nebulizer. She feels much more comfortable. Her pain is gone. She would like to try to go home if she can be set up with home oxygen. I think that is reasonable at this time and were doing a home eval for oxygen. Vital Signs: Vital signs: Vital Signs Temperature 99.8 F H 12/21/19 10:22 Pulse Rate 117 H 12/21/19 15:51 Respiratory Rate 18 12/21/19 15:51 Blood Pressure 145/85 12/21/19 15:51 Pulse Oximetry 96 12/21/19 15:51 MDM - Chest Pain Lab Data: Labs: Lab Results 12/21/19 12/21/19 12/21/19 Range/Units 10:13 10:15 10:15 WBC 18.3 H (4.0-10.0) 10^3/ uL RBC 4.61 (4.1-5.3) 10^6/u L Hgb 13.7 (11.5-15.3) g/dL Hct 43.1 (37.0-47.0) % MCV 93.5 (81-99) fL MCH 29.7 (28.0-34.0) pg MCHC 31.8 (30.0-36.0) g/dL RDW 14.4 (12.1-15.1) % Plt Count 198 (130-400) 10^3/c mm MPV 9.7 (7.4-10.4) fL Neut % (Auto) 81.5 % Lymph % (Auto) 10.1 % [place] % (Auto) 7.3 % Eos % (Auto) 0.4 % Baso % (Auto) 0.4 % Neut # (Auto) 14.88 H (1.8-7.7) 10^3/u L Lymph # (Auto) 1.9 (0.8-4.8) 10^3/u L [place] # (Auto) 1.3 H (0.2-0.9) 10^3/u L Eos # (Auto) 0.1 (0.0-0.8) 10^3/u L Baso # (Auto) 0.1 (0.0-0.1) 10^3/u L Nucleated RBC % (a uto) 0 % Nucleated RBCs # 0.0 /100WBC PT 12.60 (12.1-14.9) SECO NDS INR 0.92 (0.8-1.2) D-Dimer 0.52 (0-0.59) ug/mIFE U Sodium (136-145) mmol/L Potassium (3.5-5.1) mmol/L Chloride (98-107) mmol/L Carbon Dioxide (22-29) mmol/L Anion Gap (5-19) BUN (8-23) mg/dL Creatinine (0.5-0.9) mg/dL GFR Calculation (90-130) mL/min Glucose (65-115) mg/dL Calculated Osmolal ity (285-295) mOsm/k g Lactic Acid 1.1 (0.5-2.2) mmol/L Calcium (8.5-10.5) mg/dL Total Bilirubin (0.15-1.2) mg/dL AST (0-32) U/L ALT (0-33) U/L Alkaline Phosphata se (35-105) IU/L Troponin T Baselin e (0-10) ng/L Troponin T 120 Min [place] (0-10) ng/L Delta Troponin T (0-10) ABS# C-Reactive Protein (0.0-4.9) mg/L NT-Pro-B Natriuret Pep (0-125) pg/mL Total Protein (6.6-8.7) g/dL Albumin (3.5-5.2) g/dL Globulin (1.3-4.6) g/dL Lipase (13-60) U/L Procalcitonin (0-0.5) ng/mL SARS-CoV-2 Ag (Rap id) (Negative) 12/21/19 12/21/19 12/21/19 Range/Units 10:15 10:15 11:20 WBC (4.0-10.0) 10^3/ uL RBC (4.1-5.3) 10^6/u L Hgb (11.5-15.3) g/dL Hct (37.0-47.0) % MCV (81-99) fL MCH (28.0-34.0) pg MCHC (30.0-36.0) g/dL RDW (12.1-15.1) % Plt Count (130-400) 10^3/c mm MPV (7.4-10.4) fL Neut % (Auto) % Lymph % (Auto) % [place] % (Auto) % Eos % (Auto) % Baso % (Auto) % Neut # (Auto) (1.8-7.7) 10^3/u L Lymph # (Auto) (0.8-4.8) 10^3/u L [place] # (Auto) (0.2-0.9) 10^3/u L Eos # (Auto) (0.0-0.8) 10^3/u L Baso # (Auto) (0.0-0.1) 10^3/u L Nucleated RBC % (a uto) % Nucleated RBCs # /100WBC PT (12.1-14.9) SECO NDS INR (0.8-1.2) D-Dimer (0-0.59) ug/mIFE U Sodium 137 (136-145) mmol/L Potassium 4.8 (3.5-5.1) mmol/L Chloride 99 (98-107) mmol/L Carbon Dioxide 22 (22-29) mmol/L Anion Gap 20.8 H (5-19) BUN 12 (8-23) mg/dL Creatinine 0.6 (0.5-0.9) mg/dL GFR Calculation 101.0 (90-130) mL/min Glucose 151 H (65-115) mg/dL Calculated Osmolal ity 287 (285-295) mOsm/k g Lactic Acid (0.5-2.2) mmol/L Calcium 9.0 (8.5-10.5) mg/dL Total Bilirubin 0.6 (0.15-1.2) mg/dL AST 23 (0-32) U/L ALT 25 (0-33) U/L Alkaline Phosphata se 87 (35-105) IU/L Troponin T Baselin e 14 H (0-10) ng/L Troponin T 120 Min [place] (0-10) ng/L Delta Troponin T (0-10) ABS# C-Reactive Protein 47.1 H (0.0-4.9) mg/L NT-Pro-B Natriuret Pep 467 H (0-125) pg/mL Total Protein 7.1 (6.6-8.7) g/dL Albumin 4.6 (3.5-5.2) g/dL Globulin 2.5 (1.3-4.6) g/dL Lipase 13 (13-60) U/L Procalcitonin 0.03 (0-0.5) ng/mL SARS-CoV-2 Ag (Rap id) Negative (Negative) 12/21/19 Range/Units 12:15 WBC (4.0-10.0) 10^3/ uL RBC (4.1-5.3) 10^6/u L Hgb (11.5-15.3) g/dL Hct (37.0-47.0) % MCV (81-99) fL MCH (28.0-34.0) pg MCHC (30.0-36.0) g/dL RDW (12.1-15.1) % Plt Count (130-400) 10^3/c mm MPV (7.4-10.4) fL Neut % (Auto) % Lymph % (Auto) % [place] % (Auto) % Eos % (Auto) % Baso % (Auto) % Neut # (Auto) (1.8-7.7) 10^3/u L Lymph # (Auto) (0.8-4.8) 10^3/u L [place] # (Auto) (0.2-0.9) 10^3/u L Eos # (Auto) (0.0-0.8) 10^3/u L Baso # (Auto) (0.0-0.1) 10^3/u L Nucleated RBC % (a uto) % Nucleated RBCs # /100WBC PT (12.1-14.9) SECO NDS INR (0.8-1.2) D-Dimer (0-0.59) ug/mIFE U Sodium (136-145) mmol/L Potassium (3.5-5.1) mmol/L Chloride (98-107) mmol/L Carbon Dioxide (22-29) mmol/L Anion Gap (5-19) BUN (8-23) mg/dL Creatinine (0.5-0.9) mg/dL GFR Calculation (90-130) mL/min Glucose (65-115) mg/dL Calculated Osmolal ity (285-295) mOsm/k g Lactic Acid (0.5-2.2) mmol/L Calcium (8.5-10.5) mg/dL Total Bilirubin (0.15-1.2) mg/dL AST (0-32) U/L ALT (0-33) U/L Alkaline Phosphata se (35-105) IU/L Troponin T Baselin e (0-10) ng/L Troponin T 120 Min [place] 14.81 H (0-10) ng/L Delta Troponin T 0.81 (0-10) ABS# C-Reactive Protein (0.0-4.9) mg/L NT-Pro-B Natriuret Pep (0-125) pg/mL Total Protein (6.6-8.7) g/dL Albumin (3.5-5.2) g/dL Globulin (1.3-4.6) g/dL Lipase (13-60) U/L Procalcitonin (0-0.5) ng/mL SARS-CoV-2 Ag (Rap id) (Negative) Discharge Plan Discharge Patient Disposition: Home Clinical Impression: COPD exacerbation Chest pain Qualifiers: Chest pain type: unspecified Qualified Code(s): R07.9 - Chest pain, unspecified Condition: Stable Prescriptions: New doxycycline hyclate 100 mg capsule 100 mg PO BID 10 Days Qty: 20 RF: 0 No Action aspirin 81 mg tablet,delayed release (DR/EC) 81 mg PO DAILY RF: 0 hydrocodone-acetaminophen 7.5-325 mg tablet 1 tab PO BID PRN (Reason: Pain) RF: 0 albuterol sulfate 2.5 mg /3 mL (0.083 %) solution for nebulization 2.5 mg INHALATION Q6H PRN (Reason: Shortness Of Breath) RF: 0 Incruse Ellipta 62.5 mcg/actuation blister with device 1 inh INHALATION DAILY RF: 0 Flovent HFA 110 mcg/actuation HFA aerosol inhaler 2 puff INHALATION BID Qty: 12 RF: 2 lisinopril 20 mg tablet 20 mg PO BID RF: 0 furosemide 40 mg tablet 40 mg PO DAILY Qty: 90 RF: 3 Multiple Vitamins Tablet 1 tab PO DAILY RF: 0 vitamin B complex Tablet 1 tab PO DAILY RF: 0 Probiotic 1 cap PO DAILY RF: 0 cranberry extract 1 cap PO DAILY RF: 0 buspirone 5 mg tablet 5 mg PO BID Qty: 30 RF: 0 amlodipine 2.5 mg tablet 2.5 mg PO DAILY RF: 0 isosorbide mononitrate 60 mg tablet extended release 24 hr 60 mg PO DAILY RF: 0 simvastatin 20 mg tablet 20 mg PO BEDTIME RF: 0 metoprolol tartrate 50 mg tablet 50 mg PO BID RF: 0 nitroglycerin 0.4 mg tablet, sublingual See Rx Instructions .ROUTE .COMPLEX RF: 0 albuterol sulfate [Ventolin HFA] 90 mcg/actuation HFA aerosol inhaler 2 puff INHALATION Q4H PRN (Reason: Shortness Of Breath) RF: 0 Xarelto 10 mg tablet 10 mg PO DAILY RF: 0 Discharge Orders: Discharge Order (Routine); Ordered 12/21/19 Ordered By: Zakiya Hernandez Other Ambulatory Orders: DME: Oxygen (Order) Location: None Selected Ordered By: Zakiya Hernandez Referrals: Candida Schwartz NP [Primary Care Provider] - Discharge Diet: Usual diet Discharge Activity: Resume usual activity Patient Instructions: Chronic Obstructive Pulmonary Disease (ED) Activity Restrictions/Additional Instructions: Return to the emergency department if any new or worse symptoms. Use the oxygen as prescribed. Take the antibiotic as prescribed. Follow-up with your doctor for further management. Discharge Date/Time: 12/21/19 15:52 Coding Level of Care Code ED Senior Materials Analyst for Deo Fwd Exam Comprehensive
== END 2019-12-21 15:52 | disposition home or self-care (01) ==
PROVIDERS: Emergency Provider Emergency Medicine; PCP Nurse Practitioner Family
DX: J44.1 Chronic obstructive pulmonary disease with (acute) exacerbation (principal); Z79.82 Long term (current) use of aspirin; F17.210 Nicotine dependence, cigarettes, uncomplicated
CPT/HCPCS: 12345; 71045; 80053; 83605; 83690; 83880; 84145; 84484; 85025; 85378; 85610; 86140; 87426; 93005; 94640; 96365; 96375; 99283; 99284; J1100; J2270; J2405; J3475; J3535; J7040

== ENCOUNTER 2019-12-23 16:00 | Outpatient (CLI) | payer MEDICARE, MEDICAID, SELFPAY | END 2019-12-23 16:01 | disposition home or self-care (01) | LOC: SLEEP 12-24 09:35 | PROVIDERS: PCP Nurse Practitioner Family; Visit Provider Internal Medicine Critical Care Medicine | DX: G47.10 Hypersomnia, unspecified (principal) | CPT/HCPCS: 94762 ==

== ENCOUNTER → 2020-03-02 08:51 | Outpatient (BNVA) | payer MEDICARE, MEDICAID, SELFPAY | PROVIDERS: PCP Family Medicine Adult Medicine; Visit Provider Family Medicine Adult Medicine | DX: I25.10 Atherosclerotic heart disease of native coronary artery without angina pectoris (principal); I77.9 Disorder of arteries and arterioles, unspecified; E78.5 Hyperlipidemia, unspecified; E66.01 Morbid (severe) obesity due to excess calories; I73.9 Peripheral vascular disease, unspecified; Z68.41 Body mass index [BMI] 40.0-44.9, adult; J44.9 Chronic obstructive pulmonary disease, unspecified | CPT/HCPCS: 80053; 80061; 83036; 84443; 85025 ==

== ENCOUNTER 2020-04-09 08:33 | Emergency (ER) | payer MEDICARE, MEDICAID, SELFPAY ==
[2020-04-09] MEDS: LORazepam 2 mg/mL INJ 1 mL 1 MG IVP (08:34)
[2020-04-09] MEDS: morphine 4 mg/mL SDV 1 mL IVP (08:34)
[2020-04-09 08:36] VITALS: BMI 36.6
--- NOTE | 2020-04-09 08:38 | ED_ITS ---
HPI - CPR General: Chief Complaint: Cardiac Arrest/CPR Stated Complaint: RESPIRATORY DISTRESS Time Seen by Provider: 04/09/20 08:37 History of Present Illness: HPI narrative: Patient arrived in the department and a wheelchair accompanied by the son. They had arrived by privately owned vehicle. On arrival I was called immediately by the staff to the trauma bay. She had sonorous respirations patient was immediately transferred to an exam cot. Was recognize after placing that she was in full cardiac arrest with no respiratory effort and no palpable pulse. Son was in the room at the time we asked him to step out to begin resuscitative efforts. The son later informed the staff that she was a no code and the code was stopped see the notes below complaint: collapsed during rest Onset (ago): minute(s) Place: other (In the emergency room) Known history of: CAD and other (Diabetes mellitus) Review of Systems General: Reports: ROS unobtainable due to medical condition [facility] ED PFSH: Medical History Bilateral carotid artery stenosis Cough with hemoptysis Dyslipidemia Morbid obesity with BMI of 40.0-44.9, adult Peripheral arterial occlusive disease Surgical History Amputation of left lower extremity H/O tubal ligation H/O vascular surgery History of carpal tunnel surgery of right wrist History of lumbar laminectomy Bilateral L4-L5 laminotomy[place]aminotomy[place] [facility] [place] C4-C7 ACDFF; [place]18/2015[place] [facility] [place] Family History Mother CAD (coronary artery disease) Hypertension Father Lung disease Social History Smoking and tobacco status: current every day smoker cigarettes Packs smoked per day: 0.5 Years cigarettes smoked: 45 Quit status (tobacco): considering quitting Second hand smoke exposure: No Smoking risk assessment/counseling performed?: Yes Alcohol intake: never Lives independently: Yes Household members: children Marital status: / Current occupational status: disabled History of recent travel: No Current gender identity: Female Physical Exam Resp: OTHER: Respiratory arrest no no respiratory effort Cardio: OTHER: No palpable pulses patient initially in PEA see code note Procedures Intubation sedative: none Laryngoscope: fiber optic video scope Assist Device Used: fiber optic device ET Tube Size: 8.5 ET Tube Uncuffed: No Tube Secured Depth (cm): 24 Tube Secured Location: teeth Tube Placement Confirmation: visualized tube passing through cords, equal breath sounds bilaterally and no breath sounds over epigastrium Additional Comments: Initial attempt there was no suction there is too much secretions to visualize the cords once suction was set up the second attempt we were able to intubate without difficulty good intubation and visualized passing through the cords good CO2 monitor color change. MDM - Cardiac Arrest/CPR MDM Narrative: Medical decision making narrative: Initially patient came to the room she is obviously in severe respiratory tract she is placed on a the exam table and found to be in cardiac arrest code was called the son was in the room at the time. He was escorted to the waiting room and initially resuscitated after started. After period of time he informed the staff that she was a no code. I confirmed this with the patient. Code was stopped patient extubated and the family member allowed into the room to be with the patient. Patient had sonorous respirations and appeared uncomfortable to staff and to the family member she was given morphine and Ativan for comfort. Time of 0846. Critical Care Time Critical Care Time: Critical Care Time: Yes Total Critical Care Time: 15 Attestation: This case had a high probability of a clinically significant, sudden, or life threatening deterioration of this patient's condition which required my full and direct attention, intervention and personal management. 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
--- NOTE | 2020-04-09 08:40 | PC.NURSE ---
pt was agonal breathing upon arrival. ED physician in room. ACLS protocol started immediately.
--- NOTE | 2020-04-09 09:00 | PC.NURSE ---
pt son taking pt's glasses and purse home with him
--- NOTE | 2020-04-09 09:13 | PC.NURSE ---
Patient arrived to ED in wheelchair in obvious respiratory failure, hopkins appearance and agonal breathing, unable to speak. Once patient assisted into bed, patient went into cardiac arrest at 0831. CPR began 0831, 18g IV in left AC and Right IO established at 0832 and epinephrine was administered. Patient was intubated at 0833. Pulse checked performed. Patient had slow faint pulse and atropine was administered followed by flush then 2nd epinephrine administered. Shortly after son reported patient is a DNR per patient request
== END 2020-04-09 09:55 | disposition expired ==
LOC: ER 09:15
PROVIDERS: Emergency Provider Family Medicine; PCP Family Medicine Adult Medicine
DX: E78.5 Hyperlipidemia, unspecified; F17.210 Nicotine dependence, cigarettes, uncomplicated
CPT/HCPCS: 12345; 31500; 96374; 96375; 99282; 99285; 99292; J2060; J2270